=== PATIENT | female | born 1955 | race Caucasian/White ===

== ENCOUNTER → 2025-01-04 | Outpatient (CLI) | payer MEDICARE ==
--- NOTE | 2025-01-04 12:06 | MM ---
Reason for Exam: Screening (asymptomatic). Last mammogram was performed 1 year(s) and 1 month(s) ago. Patient History: Menarche at age 11. First Full-Term at age 25. Postmenopausal. Cyst Aspiration on the Left side. Maternal unspecified had breast cancer. Risk Values: Nydia 5 year model risk: 1.9%. NCI Lifetime model risk: 5.6%. Prior Study Comparison: 10/09/2021 Bilateral Screening Mammogram, [facility]. 12/12/2022 Bilateral Screening Mammogram, [facility]. 12/15/2023 Bilateral Screening Mammogram, [facility]. Tissue Density: The breasts are heterogeneously dense, which may obscure small masses. Findings: Analyzed By CAD. Increasing calcifications with a subtle associated density central posterior 12:00 right breast for which further evaluation is recommended. Chronic nodularity upper outer quadrant left breast. Otherwise, no significant change. Overall Assessment: Incomplete: need additional imaging evaluation, BI-RAD 0 Management: Special View Mammogram of the right breast. [facility] will attempt to contact patient to return for supplemental views and ultrasound if indicated. [facility], , 01/04/2025 11:48 AM. Electronically signed and approved by: Carley Monique M.D. Radiologist
== END | disposition home or self-care (01) ==
LOC: RADMAMWWP 08:57
PROVIDERS: ATTEND Family Medicine
DX: Z12.31 Encounter for screening mammogram for malignant neoplasm of breast (principal); R92.333 Mammographic heterogeneous density, bilateral breasts; R92.1 Mammographic calcification found on diagnostic imaging of breast; Z78.0 Asymptomatic menopausal state; Z80.3 Family history of malignant neoplasm of breast
CPT/HCPCS: 77063; 77067

== ENCOUNTER → 2025-01-06 | Outpatient (CLI) | payer MEDICARE ==
--- NOTE | 2025-01-06 11:18 | MM ---
Reason for Exam: Additional evaluation requested from abnormal screening. Last screening mammogram was performed less than 1 month ago. Patient History: Menarche at age 11. First Full-Term at age 25. Left ovary removed at age 49. Hysterectomy at age 49. Postmenopausal. Cyst Aspiration on the Left side. Maternal unspecified had breast cancer. Risk Values: Nydia 5 year model risk: 1.9%. NCI Lifetime model risk: 5.6%. Prior Study Comparison: 04/19/2004 Bilateral Diagnostic Mammogram, [facility]. 09/26/2020 Bilateral Screening Mammogram, [facility]. 10/09/2021 Bilateral Screening Mammogram, [facility]. 12/12/2022 Bilateral Screening Mammogram, [facility]. 12/15/2023 Bilateral Screening Mammogram, [facility]. 01/04/2025 Bilateral MG 3D screening mammo w/cad, [facility]. Tissue Density: Right: The breasts are heterogeneously dense, which may obscure small masses. Findings: Analyzed By CAD. On additional views, there is a subtle 8 mm spiculated mass posterior 12:00 right breast with some associated heterogeneous microcalcifications. Further ultrasound evaluation recommended. Overall Assessment: Incomplete: need additional imaging evaluation, BI-RAD 0 Management: Diagnostic Breast Ultrasound of the right breast. Electronically signed and approved by: Carley Monique M.D. Radiologist
--- NOTE | 2025-01-06 12:36 | USB ---
Reason for Exam: Additional evaluation requested from abnormal screening. Patient History: Menarche at age 11. First Full-Term at age 25. Left ovary removed at age 49. Hysterectomy at age 49. Postmenopausal. Cyst Aspiration on the Left side. Maternal unspecified had breast cancer. Risk Values: Nydia 5 year model risk: 1.9%. NCI Lifetime model risk: 5.6%. Technique: Method: Targeted. Doppler: Color. Patient Position: Supine. Prior Study Comparison: 12/12/2022 Bilateral Screening Mammogram, [facility]. 12/15/2023 Bilateral Screening Mammogram, [facility]. 01/04/2025 Bilateral MG 3D screening mammo w/cad, [facility]. Findings: The upper section of the breast of the right breast, the axilla of the right breast and the retroareolar of the right breast were scanned. A complete US of all four quadrants of the breast, axilla, and retro-areolar region were reviewed. At the 12:00 position, 10 cm from the nipple, there is a vague hypoechoic area measuring 9 x 6 x 4 mm that seems to show echogenic halo and some posterior shadowing. This is suspicious and corresponds to the mammographic area. In the subareolar region, a cystic area, possibly focally ectatic duct. There is some echoes along the margin. This area can be reassessed at the time of biopsy to exclude an intraductal lesion. At the 1:00 position, a 10 mm from the nipple, there is a tiny 3 mm hypoechoic area too small to characterize that looks like normal tissue on the antiradial view. Reassess at 6 months. At 7:00, 10 cm from the nipple, there is a 6 mm probable cyst with internal debris. Six-month follow-up recommended. No other solid or cystic lesion or axillary adenopathy. Overall Assessment: Suspicious, BI-RAD 4 Management: Ultrasound Core Biopsy of the left breast. Tissue sampling of the tiny, but highly suspicious 12:00 lesion. Reassess the subareolar area for possible second site biopsy. Otherwise if not suspicious at that time, six-month follow-up for this and the 2 other areas mentioned above. Results were given to the patient verbally at the time of exam. [facility], , 01/06/2025 12:33 PM. Electronically signed and approved by: Carley Monique M.D. Radiologist
== END | disposition home or self-care (01) ==
LOC: RADMAMWWP 10:28
PROVIDERS: ATTEND Family Medicine
DX: R92.8 Other abnormal and inconclusive findings on diagnostic imaging of breast (principal); R92.331 Mammographic heterogeneous density, right breast; Z78.0 Asymptomatic menopausal state; Z80.3 Family history of malignant neoplasm of breast
CPT/HCPCS: 77061; 77065

== ENCOUNTER → 2025-02-02 | Day surgery (SDC) | payer MEDICARE ==
--- NOTE | 2025-02-08 09:08 | MM ---
Reason for Exam: Post Procedure Mammogram. Last screening mammogram was performed less than 1 month ago. Patient History: Menarche at age 11. First Full-Term at age 25. Left ovary removed at age 49. Hysterectomy at age 49. Postmenopausal. Cyst Aspiration on the Left side. Maternal unspecified had breast cancer. Risk Values: Nydia 5 year model risk: 1.9%. NCI Lifetime model risk: 5.6%. Prior Study Comparison: 12/15/2023 Bilateral Screening Mammogram, [facility]. 01/04/2025 Bilateral MG 3D screening mammo w/cad, [facility]. 01/06/2025 Right MG 3D work up w/cad RT, [facility]. Tissue Density: Right: The breasts are heterogeneously dense, which may obscure small masses. Pathology Description: Location: 12 o'clock. Marker Left Behind. Needle Type: Mammotome Cores: 9 Skin Nicks: 1 Gauge: 13 The procedure of ultrasound guided core biopsy was explained to the patient. Benefits, alternatives, and risks were discussed. An informed consent was then obtained. The patient was placed in supine positioning for imaging and for the procedure. The overlying skin was prepped and draped in usual sterile fashion. Lidocaine buffered with bicarbonate was used as anesthetic into the skin and subcutaneous tissue up to area of concern in the right breast 12:00 10 cm from the nipple. A vikram was made with surgical scalpel. Under ultrasound guidance, a 12-gauge vacuum assisted biopsy gun device was used to obtain 9 core samples. Following this, a biopsy clip was left in lesion. The patient tolerated the procedure well without any immediate complication. The patient was kept in the radiology department for short stay after the procedure and then discharged home in stable condition. Ultrasound imaging is also performed of the area near the nipple for reassessment prior on 01/06/2025 near the nipple no definitive intraductal mass identified. Postprocedure mammogram: The patient was transferred to mammography for physician ordered post procedure mammogram for clip placement verification. Post procedure mammogram demonstrates appropriate placement of clip. Impression: Successful, uncomplicated ultrasound guided core biopsy of area of concern in the right breast at 12:00 10 cm from the nipple chest superficial to the muscle, full pathology results to follow. [facility], , 02/02/2025 1:54 PM. Pathology Results: Result: Malignant, Invasive ductal carcinoma. Pathology and radiology were reviewed. Findings are concordant. 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 Overall Assessment: Malignant Assessment: MG diagnostic mammo RT wo CAD - Right: Known biopsy proven malignancy, BI-RAD 6. Management: Surgical Consultation of the right breast. Electronically signed and approved by: Antonino Stacy DO
== END ==
LOC: RADUSWWP 11:59
PROVIDERS: ATTEND Surgery
DX: D05.11 Intraductal carcinoma in situ of right breast (principal); Z17.0 Estrogen receptor positive status [ER+]; Z90.721 Acquired absence of ovaries, unilateral; Z78.0 Asymptomatic menopausal state
CPT/HCPCS: 88305; 88342; 88341; 77065; 19083; A4648

== ENCOUNTER → 2025-02-10 | Outpatient (CLI) | payer MEDICARE ==
[2025-02-10 09:37] VITALS: BP 164/76; PULSE 103; RESP 16; TEMP 98
--- NOTE | 2025-02-10 10:08 | P.GSCN ---
History of Present Illness Consult date: 02/10/25 Reason for Consult: right breast Invasive ductal cancer Requesting physician: Fanny Del Rosario History of present illness: Brenda is a 69 year old female seen in consultation for Dr. Del Rosario regarding a right breast invasive ductal cancer. She had a bilateral mammogram on 01-04-25 which led to a right breast diagnostic mammogram and ultrasound on 01-06-25. She was recommendec to undergo an ultrasound core biopsy done on 02-02-25. Her pathology was+ for and invasive ductal cancer ER+ Pr+ HEr2-G1. She is not complaining of any new lumps masses or nodules of concern in either breast. She has not had any recent trauma or infection in the breast. She is not complaining of any nipple discharge or skin changes in the breast. She does have some skin changes on the anterior surface of her bilateral lower legs. She has not had any surgery on her breast. recently diagnosed with an eye melanoma Nicotine: Negative Caffeine: Negative Chocolate: Occasional BCP: 1 year in the remote past hormones: was on estradiol and progesterone and taken off pregesterone, she was on this for many years Family History: maternal grandmother? breast cancer Hormonal History: menarche: 11 , breast fed: yes, age at first : 25 menopause: hysterectomy at 49, took on ovary has been on hormones since that time Surgical History: hysterectomy Medical History: none Social History: nicotine: none alcohol:none drugs: none Review of Systems - Constitutional Denies fever, Denies weight loss - EENT Eyes: denies blurred vision Ears: deny: decreased hearing, tinnitus Ears, nose, mouth and throat: Reports dysphagia - Breasts bilateral: as per HPI - Cardiovascular Denies chest pain, Denies shortness of breath - Respiratory Denies cough, Denies 7 - Gastrointestinal Reports as per HPI, Reports diarrhea - Genitourinary Genitourinary: Denies dysuria, Denies hematuria Menstruation: Reports post hysterectomy - Musculoskeletal Reports as per HPI - Integumentary Integumentary Comment(s): rash lower legs Denies rash, Denies unusual bruising - Neurological Denies headaches, Denies syncope - Psychiatric Reports as per HPI - Endocrine Reports as per HPI - Hematologic/Lymphatic Denies easy bleeding, Denies easy bruising - Allergic/Immunologic Reports seasonal allergies Past Medical History Past Medical History: Thyroid Disorder History of Any Multi-Drug Resistant Organisms: None Reported Past Surgical History: Hysterectomy Past Anesthesia/Blood Transfusion Reactions: No Reported Reaction Past Psychological History: No Psychological Hx Reported Smoking Status: Never smoker Past Alcohol Use History: None Reported Past Drug Use History: None Reported Medications and Allergies Home Medications Medication Instructions Recorded Confirmed Type Thyroid,Pork [Fruit Grower Thyroid] 75 mg PO DAILY 01/09/25 02/10/25 History estradioL [Estrace] 1 mg PO DAILY 01/09/25 02/10/25 History Allergies Allergy/AdvReac Type Severity Reaction Status Date / Time No Known Allergies Allergy Verified 02/10/25 09:33 Surgical - Exam - General no distress - Eyes normal ocular movement - ENT no hearing loss - Neck trachea midline - Respiratory normal respiratory effort, clear to auscultation - Cardiovascular Rhythm: regular Heart Sounds: normal: S1, S2 - Abdomen Abdomen: soft, non tender, no guarding, no rigid, no rebound - Integumentary rash lower extremities no abnormal pigmentation - Neurologic no disoriented, no combative - Musculoskeletal normal gait - Psychiatric oriented to time, oriented to person, oriented to place, speech is normal, memory intact Breast Exam: BRA: 38D Inspection: Bilateral grade 2 ptosis Palpation: Right breast: Multi positional exam no dominant masses or nodules of concern Right axilla: No adenopathy of concern Left breast: Multi positional exam no dominant masses or nodules of concern Left axilla: No adenopathy of concern Results Mammogram and ultrasound personally reviewed and discussed with radiology Dr. Williamson Assessment and Plan Assessment: Impression: Stage I invasive ductal carcinoma right breast Plan: Presentation of case at tumor board CC: Dr. Del Rosario
== END ==
LOC: WWCWWP 08:58
PROVIDERS: ATTEND Surgery
DX: D05.11 Intraductal carcinoma in situ of right breast (principal)

== ENCOUNTER → 2025-03-02 | Outpatient (CLI) | payer MEDICARE ==
[2025-03-02 08:48] VITALS: BP 144/80; PULSE 89; RESP 18; TEMP 97.7
--- NOTE | 2025-03-02 09:10 | P.BCPO ---
Progress Note - Text Progress Note Date: 03/02/25 Brenda is a 69 year old female status post right breast lumpectomy on 02-21-2025. Pathology revealed invasive well-differentiated ductal carcinoma grade 1. There was some focal flat epithelial atypia with microcalcifications. All margins were negative for invasive carcinoma. Closest margin to invasive carcinoma was 1.5 mm from the posterior margin. The tumor size was 8 mm. This is a T1b pathologic. pT1bER+Pr+Her2- Examination: lungs: clear heart: RRR incision: clean and dry Impression: Patient has been recommended to follow with medical and radiation oncology, she is most likely not going to take any radiation therapy or hormone therapy. We have discussed doing an Oncotype and she will discuss this with medical oncology. She will follow-up here in 4 months. She will follow-up sooner any questions or concerns. Post Op Education - Post Op Education Post Op Education Provided Date: 03/02/25 - Functional Assessment Performed?: Yes
== END ==
LOC: WWCWWP 08:33
PROVIDERS: ATTEND Surgery
DX: Z98.890 Other specified postprocedural states (principal); Z88.8 Allergy status to other drugs, medicaments and biological substances; Z88.1 Allergy status to other antibiotic agents